=== PATIENT | female | born 1955 | race Caucasian/White ===

== ENCOUNTER 2017-04-28 08:21 | Day surgery (SDC) | payer MEDICARE, OTHER ==
--- NOTE | ~2017-04-28 | EGD ---
EGD REPORT [facility] [address] [address] NAME: EVETTE CANDELARIO : 55 STATUS : [facility]#: [id number] AGE: 62 ADM/REG DATE : 04/28/17 MR#: [id number] REPORT SERV DATE: 04/28/17 DICTATED BY: DATE: REPORT STATUS : Draft TRANSCRIBED BY: [employer] DATE: 04/28/17 [facility] Patient Name: Evette Candelario Date of : 1955 Attending MD: QUAN BRYAN, Procedure Date No Time: 04/28/2017 Procedure: Upper GI endoscopy Indications: Iron deficiency anemia, Dysphagia Referring MD: VIKTOR EPPS Medicines: Monitored Anesthesia Care Complications: No immediate complications. Estimated blood loss: None. Procedure: Pre-Anesthesia Assessment: - ASA Grade Assessment: III - A patient with severe systemic disease. After obtaining informed consent, the endoscope was passed under direct vision. Throughout the procedure, the patient's blood pressure, pulse, and oxygen saturations were monitored continuously. The PCF H190L [id number] was introduced through the mouth, and advanced to the second part of duodenum. The upper GI endoscopy was accomplished without difficulty. The patient tolerated the procedure well. Findings: The Z-line was irregular. Biopsies were taken with a cold forceps for histology. Verification of patient identification for the specimen was done. Estimated blood loss was minimal. A moderate Schatzki ring (acquired) was found at the gastroesophageal junction. A guidewire was placed and the scope was withdrawn. Dilation was performed with a Savary dilator with no resistance at 54 Fr. The exam of the stomach was otherwise normal. The cardia and gastric fundus were normal on retroflexion. The duodenal bulb was normal. Patchy moderately erythematous mucosa without active bleeding and with no stigmata of bleeding was found in the second part of the duodenum. Biopsies were taken with a cold forceps for histology. Verification of patient identification for the specimen was done. Estimated blood loss was minimal. Impression: - Z-line irregular,. Biopsied. - Moderate Schatzki ring. Dilated. - Normal duodenal bulb. - Erythematous duodenopathy. Biopsied. Recommendation: - Patient has a contact number available for EGD REPORT [address] [address] NAME: EVETTE CANDELARIO : 55 STATUS : REG [facility] PAT#: [id number] AGE: 62 ADM/REG DATE : 04/28/17 MR#: [id number] REPORT SERV DATE: 04/28/17 DICTATED BY: DATE: REPORT STATUS : Draft TRANSCRIBED BY: [employer] DATE: 04/28/17 emergencies. The signs and symptoms of potential delayed complications were discussed with the patient. Return to normal activities tomorrow. Written discharge instructions were provided to the patient. - Return to previous diet. - Continue present medications. - Await pathology results. Procedure Code(s): --- Professional --- 26946, Esophagogastroduodenoscopy, flexible, transoral; with insertion of guide wire followed by passage of dilator(s) through esophagus over guide wire 54306, Esophagogastroduodenoscopy, flexible, transoral; with biopsy, single or multiple Diagnosis Code(s): --- Professional --- K22.8, Other specified diseases of esophagus K22.2, Esophageal obstruction K31.89, Other diseases of stomach and duodenum D50.9, Iron deficiency anemia, unspecified R13.10, Dysphagia, unspecified CPT copyright 2013 [employer]. All rights reserved. The codes documented in this report are preliminary and upon maintenance supervisor 2nd shift review may be revised to meet current compliance requirements. QUAN BRYAN, 04/28/2017 10:24 AM Number of Addenda: 0 Note Initiated On: 04/28/2017 9:37 AM Scope Withdrawal Time 0 hours 0 minutes 0 seconds [address] [place] [address]
--- NOTE | ~2017-04-28 | EGD ---
EGD REPORT [facility] [address] [address] NAME: EVETTE CANDELARIO : 55 STATUS : REG [facility]#: [id number] AGE: 62 ADM/REG DATE : 04/28/17 MR#: [id number] REPORT SERV DATE: 04/28/17 DICTATED BY: QUAN BRYAN DATE: 04/28/17 REPORT STATUS : Draft [facility]ANSCRIBED BY: [facility] DATE: 04/28/17 Endoscopy Center Patient Name: Evette Candelario Date of : 1955 Attending MD: QUAN BRYAN, Procedure Date No Time: 04/28/2017 Procedure: Colonoscopy Indications: Iron deficiency anemia Referring MD: VIKTOR EPPS Medicines: Monitored Anesthesia Care Complications: No immediate complications. Estimated blood loss: None. Procedure: Pre-Anesthesia Assessment: - ASA Grade Assessment: III - A patient with severe systemic disease. After I obtained informed consent, the scope was passed under direct vision. Throughout the procedure, the patient's blood pressure, pulse, and oxygen saturations were monitored continuously. The PCF H190L [id number] was introduced through the anus and advanced to the cecum, identified by appendiceal orifice and ileocecal valve. The colonoscopy was performed without difficulty. The patient tolerated the procedure well. The quality of the bowel preparation was good. Findings: The perianal and digital rectal examinations were normal. A few small-mouthed diverticula were found in the sigmoid colon. The exam was otherwise without abnormality. Internal hemorrhoids were found, and they were Grade I (internal hemorrhoids that do not prolapse). The exam was otherwise without abnormality. Impression: - Diverticulosis in the sigmoid colon. - The examination was otherwise normal. - Internal hemorrhoids. - The examination was otherwise normal. Recommendation: - Patient has a contact number available for emergencies. The signs and symptoms of potential delayed complications were discussed with the patient. Return to normal activities tomorrow. Written discharge instructions were provided to the patient. - Return to previous diet. - Continue present medications. - Repeat colonoscopy in 10 years for surveillance. EGD REPORT [address] [address] NAME: EVETTE CANDELARIO : 55 STATUS : REG [facility] PAT#: [id number] AGE: 62 ADM/REG DATE : 04/28/17 MR#: [id number] REPORT SERV DATE: 04/28/17 DICTATED BY: QUAN BRYAN DATE: 04/28/17 REPORT STATUS : Draft TRANSCRIBED BY: [employer] DATE: 04/28/17 Procedure Code(s): --- Professional --- 21844, Colonoscopy, flexible, proximal to splenic flexure; diagnostic, with or without collection of specimen(s) by brushing or washing, with or without colon decompression (separate procedure) Diagnosis Code(s): --- Professional --- K64.0, First degree hemorrhoids K57.30, Diverticulosis of large intestine without perforation or abscess without bleeding D50.9, Iron deficiency anemia, unspecified CPT copyright 2013 [employer]. All rights reserved. The codes documented in this report are preliminary and upon band booker review may be revised to meet current compliance requirements. QUAN BRYAN, 04/28/2017 10:26 AM Number of Addenda: 0 Note Initiated On: 04/28/2017 9:35 AM Scope Withdrawal Time 0 hours 11 minutes 53 seconds [address] [place] [address]
[~2017-04-28 08:21] MED LIST: CLARIT10 PO; CRESTOR20 MG PO; CYMBALTA60 PO; DEMA20 PO; EDARBI80 MG PO; FERROUS SULF325 M1 PO; FLEX PO; GLUCOPHAGE1000 MG PO; IMOD PO; LAMICTAL10 PO; LIPITOR10 PO; MCZ25 PO; NORCO1 TAB PO; PR25 PO; PRILO PO; PRILOSEC40 MG PO; RITALIN10 PO; VITAMIN D1000 UNI1 PO; XANAX1 MG PO
[2017-08-07] MEDS ORDERED: EDARBI80 MG PO (12:18)
[2017-08-07] MEDS ORDERED: BUSPAR30 MG PO (12:20)
[2017-08-07] MEDS ORDERED: ESBRIET267C PO (12:21)
[2017-08-07] MEDS ORDERED: ANOROELLIPTA INH (12:25)
== END 2017-04-28 23:59 | disposition home or self-care (01) ==
LOC: DMU 08:21
PROVIDERS: Internal Medicine Gastroenterology
PROC: 0DJD8ZZ Inspection of Lower Intestinal Tract, Via Natural or Artificial Opening Endoscopic (ICD-10-PCS; 2017-04-28)
PROC: 0DB58ZX Excision of Esophagus, Via Natural or Artificial Opening Endoscopic, Diagnostic (ICD-10-PCS; principal; 2017-04-28 10:00)
PROC: 0DB98ZX Excision of Duodenum, Via Natural or Artificial Opening Endoscopic, Diagnostic (ICD-10-PCS; 2017-04-28 10:00)
PROC: 0D748ZZ Dilation of Esophagogastric Junction, Via Natural or Artificial Opening Endoscopic (ICD-10-PCS; 2017-04-28 10:00)
DX: K29.80 Duodenitis without bleeding (principal); K22.70 Barrett's esophagus without dysplasia; K22.2 Esophageal obstruction; K57.30 Diverticulosis of large intestine without perforation or abscess without bleeding; K64.0 First degree hemorrhoids; D50.9 Iron deficiency anemia, unspecified; K21.9 Gastro-esophageal reflux disease without esophagitis; K58.9 Irritable bowel syndrome, unspecified; I10 Essential (primary) hypertension; E78.00 Pure hypercholesterolemia, unspecified; E11.9 Type 2 diabetes mellitus without complications; G47.30 Sleep apnea, unspecified; J44.9 Chronic obstructive pulmonary disease, unspecified; F41.9 Anxiety disorder, unspecified; F32.9 Major depressive disorder, single episode, unspecified; M54.5 Low back pain; F17.210 Nicotine dependence, cigarettes, uncomplicated; Z88.2 Allergy status to sulfonamides; Z88.1 Allergy status to other antibiotic agents; Z96.1 Presence of intraocular lens; Z98.41 Cataract extraction status, right eye; Z98.42 Cataract extraction status, left eye; Z79.84 Long term (current) use of oral hypoglycemic drugs; Z79.899 Other long term (current) drug therapy; Z98.890 Other specified postprocedural states
CPT/HCPCS: 82962; 88305; J2550